=== PATIENT | female | born 1945 | race Caucasian/White ===

== ENCOUNTER → 2019-04-09 | Outpatient (CLI) | payer BC, MEDICARE, OTHER ==
[2019-01-28 15:54] VITALS: BP 136/41
[~2019-04-09] MED LIST: ALBU2.5V8 INH; AMLO10TA8 PO; ASPI325T11 PO; BENA40TA15 PO; BUPR150T6 PO; CELE200C PO; CETI10TA24 PO; CHLO25TA10 PO; CHOL100013 PO; CRESTOR10 MG PO; CYCL1DRO EACHEYE; DULO60CA6 PO; ESOM20CA PO; FLUO40CA2 PO; HYDR-2761 PO; LACT1CAP19 PO; LOTE2.8D OP; MELO15TA6 PO; MIRA25TA PO; NAPR220T70 PO; OMEG1CAP28 PO; POLY119P3 PO; POLY17PO28 PO; PREG150C PO; TRAM50TA PO; TRIA10.8 NS; VITA100022 PO; ZOLPIDEM 5 MG TABLET. PO ONE
--- NOTE | 2019-04-11 11:42 | SLEEP ---
DATE OF STUDY: 04/09/2019 SLEEP STUDY DATE OF STUDY: 04/09/2019 REFERRING PHYSICIAN: Odessa Kong MD The patient is 73 years old, who weighs 201 pounds with a BMI of 39. The patient's [place] score was 5. The patient underwent split night study performed at [facility]. During the night study, the patient spent 378 minutes in bed and slept for 278 minutes with a sleep efficiency of 74%. Sleep latency was 59 minutes with a REM latency of 207 minutes. Sleep architecture showed normal stage 1 sleep, increased stage 2 sleep, normal slow wave, and reduced REM sleep. During the initial diagnostic portion of the study, the patient slept for 72 minutes. During that time, the patient had no obstructive apneas. There were 12 mixed apneas, no central apneas, and 83 hypopneas. The patient's apnea hypopnea index was 80 per hour and supine index of 80 per hour. REM sleep was not seen during the diagnostic portion. EKG monitoring revealed an average heart rate of 68 beats per minute. No sustained arrhythmias observed. PLMS were seen at index of 8 per hour and 1 per hour caused EEG arousals. Nocturnal oximetry study revealed a mean oxygen saturation of 96% with the lowest of 73%. 37% of time oxygen saturation remained between 80% and 89%. The patient met the criteria for CPAP initiation. It was started at 5 cm of water and titrated up to 20 cm of water. At the final pressure, the patient slept for 46 minutes. The patient had supine sleep, but no REM sleep. The patient's AHI was reduced to 1 per hour and oxygen saturation remained above 93%. The patient uses small size full face mask. IMPRESSION: 1. Severe sleep apnea-hypopnea syndrome at an AHI of 80 per hour. 2. Nocturnal hypoxia secondary to obstructive sleep apnea, but resolved with CPAP. 3. No clinically significant periodic limb movements. RECOMMENDATIONS: 1. CPAP at 20 cm of water completely eliminated the patient's sleep apnea and should be used on a nightly basis. 2. Follow up in 4-6 weeks to assess compliance with CPAP and to document clinical improvement. 3. Weight loss is strongly advised. 4. Avoid [employer] depressants. 5. Cautioned regarding driving until symptoms of sleep apnea resolve with the use of CPAP. GRIS DUKES MD DR: CELIA/loki JOB#: [id number] / [id number]
== END | disposition home or self-care (01) ==
LOC: SLPLAB 19:37
PROVIDERS: ATTEND Internal Medicine Pulmonary Disease
DX: G47.33 Obstructive sleep apnea (adult) (pediatric) (principal); G47.34 Idiopathic sleep related nonobstructive alveolar hypoventilation
CPT/HCPCS: 95810